=== PATIENT | male | born 2000 | race Caucasian/White ===

== ENCOUNTER 2020-07-18 08:15 | Outpatient (RCR) | payer OTHER, SELFPAY ==
[2020-07-11 12:23] VITALS: BMI 18.6
--- NOTE | 2020-07-11 13:01 | PC.ADMIT ---
Patient is a 19 year old male who started the PHP program today. Patient's father referred patient d/t his increase in depression symptoms with SI, self harming behaviors, struggling with substance use, and anxiety. Patient also struggling with separation from . He is currently living alone. He reports px hx of dx of BPD and Bipolar d/o. Patient stated he is here, to I think reconnect more consistently with a higher level of care in a group setting, I can relate to others, and motivated to curtail suicidal ideation and self harm ideation . Denied current SI. Reports hx of self harming a few years ago where he needed stitches a few times however he does not cut like that anymore, more superficial. Last cut about 2 weeks ago he cut his chest with a razor. Stated, it is roland a mixed bag I use self harming thoughts to self sooth, its weird, I will think a lot about self harm as an option making me feel like I am more in control. So I am trying to get out of the practice . Instead of self harming patient stated he could exercise, listen to music, read. Pt gave verbal permission to email him a copy of his safety plan and will utilize if feeling unsafe. Pt also has the crisis number if needed and is aware he can come to staff if feeling unsafe. Medications reconciled with patient and patient's pharmacy.
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
--- NOTE | 2020-07-19 09:25 | PC.NURSE ---
Pt did not attend community meeting at 9am. TW reached out to patient to check in. Pt answered the phone and presented as if intoxicated. Pt was confusing the day, stating that he had sent TW an email that he was obtaining blood work (that was sent and completed on 07/18/20). Pt struggled to follow the flow of the conversation. TW inquired if pt was using substances at this time, pt denied. Pt was asked again why he missed community meeting and pt responded that this call woke him up and he forgot about program. Pt continued to persent as intoxicated. Pt was told to take the day and to return tomorrow 07/20/20. Pt agreeable. PHP cook supervisor and PHP nurse notified.
--- NOTE | 2020-07-19 11:40 | PC.NURSE ---
Patient did not show up to the program this morning. Katalina spoke to patient earlier this morning and I called him at 11am to f/u. Patient stated that he thinks he is, more on a downswing with my bipolar, hard to get out of bed . Reports that he feels he is slipping with group attendance. He stated his next strategy is to try and focus and share more in group. Stated groups can cause him anxiety. Patient gave an unclear reason why he did not attend the program today. Difficult to follow his train of thought at times. Talked about being late to group because he had lab work to be done. I told him that he completed lab work yesterday. Asked if he was using substances or overusing his prescription medications. Pt denied this. He did state that one of the reasons why he is here is because, I was selling benzos, I was overtaking them . Pt did talk about suffering from severe panic and is afraid to, ask for a bump in dosage of a controlled substance. Asked if he could get a 3 month supply. I let him know that we do not give 3 month supply's of any medications and certainly not controlled substances. Pt then stated that that makes sense. He plans on returning to the program tomorrow. Team is aware.
== END 2020-07-18 23:55 | disposition left against medical advice (07) ==
LOC: HO.PHPA 08:15
PROVIDERS: Visit Provider Psychiatry & Neurology Psychiatry
DX: F31.9 Bipolar disorder, unspecified (principal); F60.3 Borderline personality disorder; Z79.899 Other long term (current) drug therapy
CPT/HCPCS: 90792; 90853

== ENCOUNTER 2020-07-18 08:20 | Outpatient (REF) | payer MEDICAID, SELFPAY ==
[2020-07-18 10:04] LABS: MANUAL DIFF FLAG NO
[2020-07-18 10:22] LABS: Basophils Absolute Auto 0.1 X10*3/uL (0.0-0.2); Eosinophils Absolute Auto 0.1 X10*3/uL (0.0-0.4); Eosinophils Percent Auto 2.3 % (0-4); Hematocrit 43.9 % (42-52); Hemoglobin 14.4 g/dl (14.0-18.0); Imm Gran Abs Auto 0.02 X10*3/uL (0.00-0.03); Imm Gran Pct Auto 0.4 % (0.0-0.4); Lymphocytes Percent Auto 37.8 % (20-40); Mean Corpuscular HGB Conc 32.8 g/dl (31.0-36.0); Mean Corpuscular Hemoglobin 31.4 pg (27.0-33.0); Mean Corpuscular Volume 95.6 fL (80-98); Mean Platelet Volume 9.8 fL (9.4-12.4); Monocytes Absolute Auto 0.4 X10*3/uL (0.1-1.2); Monocytes Percent Auto 6.9 % (2-11); Neutrophils Absolute Auto 2.7 X10*3/uL (2.0-8.3); Neutrophils Percent Auto 51.6 % (45-73); Platelet Count 248 X10*3/uL (160-400); Red Blood Count 4.59 X10*6/uL (4.60-5.80); Red Cell Distribution Width 12.1 % (11.0-16.0); White Blood Count 5.2 X10*3/uL (4.8-10.8)
[2020-07-18 11:11] LABS: HIV AB/AG Nonreactive (Nonreactive); HIV Num 1 0.16 S/CO (0.00-0.99); ~HepC Num1 0.07 S/CO (0.00-0.79); ~Hepatitis C Antibody Nonreactive (Nonreactive)
[2020-07-18 11:13] LABS: Syphilis Screen Nonreactive (Nonreactive)
[2020-07-18 11:14] LABS: Ferritin 106 ng/mL (20-250); Free T4 (Free Thyroxine) 0.79 ng/dL (0.71-1.85); Thyroid Stimulating Hormone 1.45 uIU/mL (0.32-4.0)
[2020-07-18 11:20] LABS: Vitamin B12 491 pg/mL (200-900)
[2020-07-18 11:24] LABS: Alanine Aminotransferase 10 U/L (0-40); Albumin Level 4.3 g/dL (3.5-5.0); Alkaline Phosphatase 63 U/L (39-117); Anion Gap 15 (12-20); Aspartate Amino Transferase 15 U/L (5-37); Blood Urea Nitrogen 17 mg/dL (9-16); Carbon Dioxide 24 mmol/L (22-29); Chloride 106 mmol/L (96-108); Cholesterol 158 mg/dL; Estimated Glomerular Filt Rate > 60; Glucose Random 94 mg/dL (60-115); HDL Cholesterol 57 mg/dL; Iron 81 mcg/dL (45-160); LDL Cholesterol Calculated 85 mg/dl; Percent Iron Saturation 25 % (15-50); Potassium 4.7 mmol/l (3.3-5.1); Sodium 140 mmol/L (135-145); Total Iron Binding Capacity 324 mcg/dL (228-428); Total Protein 6.9 g/dL (6.5-8.0); Triglycerides 81 mg/dL; Unsaturated Iron Binding 243 ug/dL
[2020-07-18 11:38] LABS: Estimated Average Glucose 94 mg/dL; Hemoglobin A1c % 4.9 %
[2020-07-18 11:39] LABS: Bilirubin Total 0.2 mg/dL (0.0-1.0)
[2020-07-18 13:40] LABS: Folate 6.1 ng/mL (> or = 4.0)
== END 2020-07-18 08:21 | disposition home or self-care (01) ==
LOC: HO.LAB 08:20
PROVIDERS: PCP Physician Assistant; Visit Provider Clinical Nurse Specialist Psychiatric/Mental Health, Adult
DX: F31.4 Bipolar disorder, current episode depressed, severe, without psychotic features (principal)
CPT/HCPCS: 36415; 80053; 80061; 82607; 82728; 82746; 83036; 83540; 84439; 84443; 85025; 86780; 86803; 87389

== ENCOUNTER 2020-08-06 20:41 | Emergency (ER) | payer OTHER, MEDICAID, SELFPAY ==
[2020-08-06 21:39] VITALS: BP 115/50; PULSE 86; RESP 18; TEMP 37.1; O2SAT 100; BMI 19.3
--- NOTE | 2020-08-06 21:46 | PC.NURSE ---
[address] aware that patient is in ed waiting room. pt has self inflicted wounds, appears disselved on arrival. pt admits to iv meth, cocaine and ketamine use. pt had abcess on left elbow region due to shooting up cocaine. pt is not in right state of mind and can not in my opinion make medical decisions for himself.
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
--- NOTE | 2020-08-06 22:55 | PC.NURSE ---
PT DENIES S/H IDEATIONS. MD AT BEDSIDE WITH PT AT BEDSIDE. AWAITING FOR FURTHER ORDERS.
--- NOTE | 2020-08-06 23:00 | ED_ITS ---
HPI - Wound/Laceration General Chief Complaint: Wound/Laceration Stated Complaint: HAND LAC Time Seen by Provider: 08/06/20 23:00 Source: patient Mode of arrival: ambulatory History of Present Illness HPI narrative: This is a 19-year-old male who presents with a 2 cm laceration to the left dorsum of the hand that he sustained while trying to play a game a knife and ?missed?. Patient states that he is taking his medications as prescribed as well as additional IV meth, cocaine as well as ketamine usage. He denies any suicidal ideation at this time and denies any depressive thoughts. He states that sometimes he just gets focused on seeing if he can ?handle the pain?. He is here with his father who is waiting for him in the waiting area. Related Data Home Medications Medication Instructions Recorded Confirmed lorazepam 0.5 mg PO DAILY PRN 07/11/20 07/11/20 Previous Rx's Medication Instructions Recorded bupropion HCl [Wellbutrin XL] 300 mg PO QAM #14 tab 07/11/20 lamotrigine [Lamictal] 100 mg PO DAILY #14 tab 07/11/20 lorazepam 0.5 mg PO BID #14 tab 07/11/20 quetiapine [Seroquel] 50 - 100 mg PO DAILY PRN #14 tab 07/11/20 quetiapine [Seroquel] 100 mg PO TID #21 tab 07/11/20 Allergies Allergy/AdvReac Type Severity Reaction Status Date / Time No Known Allergies Allergy Verified 08/06/20 21:38 [No Known Allergies*] Review of Systems Review of Systems: Pertinent positives and negatives as stated in HPI and 10 point review of systems is otherwise negative. REPLACED BY [facility] Past Medical History Source: nursing notes reviewed Medical History Bipolar 1 disorder Borderline personality disorder Cannabis use disorder, moderate, dependence Irritable bowel syndrome Opioid use disorder, moderate, dependence Social History Social History Household Members: None Smoking Status: Former smoker Advance Directives: No Advance Directives Information Provided: Yes Physical Exam Vital Signs: Vital Signs: Last Vital Signs Temp 98.8 F 08/06/20 21:39 Pulse 86 08/06/20 21:39 Resp 18 08/06/20 21:39 BP 115/50 L 08/06/20 21:39 Pulse Ox 100 08/06/20 21:39 Body Mass Index 19.3 VITAL SIGNS: Reviewed. GENERAL: Well developed, well nourished, in no acute distress. OROPHARYNX: no oral lesions noted, posterior pharynx clear NECK: Supple, no adenopathy LUNGS: Normal breath sounds. No adventitious sounds or accessory muscle use. SpO2<> CARDIOVASCULAR: Regular rate and rhythm without noted murmurs, no JVD or lower extremity edema. ABDOMEN: Soft, non-tender, non-distended with bowel sounds. No rigidity. No guarding. No palpable masses or hernias noted MUSCULOSKELETAL: No tenderness, deformities, or effusions noted on gross inspection. EXTREMITIES: No cyanosis, clubbing or edema. SKIN: Inspection of the skin reveals multiple old and new superficial self- inflicted lacerations to entire chest area and bilateral upper extremities, 2 cm laceration to the dorsum of the left hand that is hemostatic and no problems with range of motion. NEUROLOGIC: Alert and oriented x 4. PSYCH: Flat affect, not depressed Course Course Course Narrative: This is a 19-year-old male with history and clinical presentation consistent with accidental laceration to the left dorsum of the hand without tenderness damage. Laceration was repaired without complications and patient was allowed to rest as he had stated he had slept in a couple of days. Patient was discharged home in stable condition after reiterating that he is not having thoughts of killing himself or feeling depressed. Procedures Laceration Laceration 1: Site: hand Side (If applicable): left Size (cm): 2 Description: linear Depth: simple, single layer Local Anesthetic: lidocaine 1% Amount of anesthesia used (mL): 2 Pre-repair: wound explored, irrigated extensively and deep structures intact Skin layer closed with: other (Chromic) Size (cm): 5-0 Number of sutures: 3 Technique: simple, interrupted Discharge Plan Discharge Clinical Impression: Laceration Patient Disposition: Home, Self-Care Instructions: Laceration (ED), Care For Your Absorbable Stitches (ED) Additional Instructions: May cleanse the wounds with soap and water and blot dry. You had 3 stitches that were placed in your left hand today that will gradually absorb and fall out. Please do not hesitate to return to the emergency department should this develop any redness, swelling, or concerning drainage. Prescriptions: No Action lorazepam 0.5 mg Tablet 0.5 mg PO DAILY PRN (Reason: Anxiety) RF: 0 bupropion HCl [Wellbutrin XL] 300 mg tablet extended release 24 hr 300 mg PO QAM Qty: 14 RF: 1 lamotrigine [Lamictal] 100 mg tablet 100 mg PO DAILY Qty: 14 RF: 1 quetiapine [Seroquel] 100 mg Tablet 100 mg PO TID Qty: 21 RF: 4 quetiapine [Seroquel] 100 mg Tablet 50 - 100 mg PO DAILY PRN (Reason: Agitation) Qty: 14 RF: 4 lorazepam 0.5 mg Tablet 0.5 mg PO BID Qty: 14 RF: 4 Referrals: Tammy Cintron PA [Primary Care Provider] - 2 days (Re-evaluation and outpatient follow-up for laceration repaired with absorbable sutures to the left hand.)
[2020-08-06] MEDS: Lidocaine HCl 1 % MPF 5 ML VIAL INFILTRATI (23:18)
--- NOTE | 2020-08-07 00:11 | PC.NURSE ---
PT SLEEPING IN RECLINING CHAIR IN NAD. WOUNDS ON HAND CLEANED UP. PT DENIES ANY PAIN/COMPLAINTS AT THIS TIME. PT DENIES S/H IDEATIONS AND STATES I DO NOT WANT TO HURT MYSELF UPDATED FATHER IN [place]. FATHER STATES I WILL STAY HERE UNTIL PT IS DISCHARGED. WILL CONTINUE TO MONITOR PT.
--- NOTE | 2020-08-07 00:40 | MHC.CARE ---
CARE team attempted to meet with pt at request of the ED physician, however was unable to wake pt up for conversation. Recommendation to wait until pt is less altered by substances and re-assess need for crisis evaluation.
--- NOTE | 2020-08-07 03:23 | PC.NURSE ---
PT AWAITING FOR MD'S EVAL FOR SUTURING HAND UP. PT SLEEPING WAKES TO VERBAL STIMULI, RESPIRATIONSE EASY, N/L. WILL CONTINUE TO MONITOR PT.
--- NOTE | 2020-08-07 04:00 | PC.NURSE ---
PT CHG INTO CRISIS ATTIRE WITH SECURITY PRESENT AT BEDSIDE FOR SAFETY. PT REMAINS ALERT, RESPIRATIONS EASY, N/L. SKIN W/D.
[2020-08-07 07:46] VITALS: BP 110/42; PULSE 67; RESP 14; TEMP 36.9; O2SAT 98
== END 2020-08-07 08:06 | disposition home or self-care (01) ==
PROVIDERS: Emergency Provider Student in an Organized Health Care Education/Training Program; PCP Physician Assistant
DX: S61.412A Laceration without foreign body of left hand, initial encounter (principal); W26.0XXA Contact with knife, initial encounter; Y93.83 Activity, rough housing and horseplay; F11.20 Opioid dependence, uncomplicated; F12.20 Cannabis dependence, uncomplicated; F60.3 Borderline personality disorder; Z91.5 Personal history of self-harm; Y92.019 Unspecified place in single-family (private) house as the place of occurrence of the external cause; Y99.9 Unspecified external cause status; Z79.899 Other long term (current) drug therapy
CPT/HCPCS: 12001; 99284

== ENCOUNTER 2020-10-13 20:30 | Inpatient (IN) | payer OTHER, SELFPAY ==
[2020-10-13 20:37] VITALS: BP 97/47; BP 98/63; PULSE 80; PULSE 96; RESP 18; TEMP 36.5; O2SAT 100; O2SAT 97; BMI 18.3
--- NOTE | 2020-10-13 21:11 | ECG_ITS ---
Test Reason : OVERDOSE Blood Pressure : / mmHG Vent. Rate : 060 BPM Atrial Rate : 060 BPM P-R Int : 174 ms QRS Dur : 102 ms QT Int : 382 ms P-R-T Axes : 048 061 038 degrees QTc Int : 382 ms Sinus rhythm with marked sinus arrhythmia Otherwise normal ECG When compared with ECG of 03-APR-2020 10:56, No significant change was found Referred By: Nereyda Dooley Electronically Signed By:DINA SIEGEL
[2020-10-13] MEDS: Lidocaine HCl 2 % MPF 5 ML VIAL SUBCUT (21:17)
[2020-10-13 21:30] VITALS: BP 105/55; PULSE 64; RESP 18; O2SAT 100
[2020-10-13 21:48] LABS: Amphetamine Screen Urine Not Detected (Not Detect); Barbiturates, Urine Not Detected (Not Detect); Benzodiazepines Screen Urine POSITIVE (Not Detect); Cannabinoid Screen Urine POSITIVE (Not Detect); Cocaine Screen Urine Not Detected (Not Detect); Opiate Screen Urine Not Detected (Not Detect); Phencyclidine Screen Urine Not Detected (Not Detect)
[2020-10-13 22:03] LABS: Basophils Percent Auto 0.8 % (0-2); Eosinophils Absolute Auto 0.1 X10*3/uL (0.0-0.4); Eosinophils Percent Auto 1.2 % (0-4); Hematocrit 35.4 % (42-52); Hemoglobin 11.7 g/dl (14.0-18.0); Imm Gran Abs Auto 0.01 X10*3/uL (0.00-0.03); Imm Gran Pct Auto 0.2 % (0.0-0.4); Lymphocytes Absolute Auto 1.2 X10*3/uL (1.2-4.9); Lymphocytes Percent Auto 23.9 % (20-40); MANUAL DIFF FLAG NO; Mean Corpuscular HGB Conc 33.1 g/dl (31.0-36.0); Mean Corpuscular Hemoglobin 31.8 pg (27.0-33.0); Mean Corpuscular Volume 96.2 fL (80-98); Mean Platelet Volume 9.2 fL (9.4-12.4); Monocytes Absolute Auto 0.4 X10*3/uL (0.1-1.2); Monocytes Percent Auto 7.6 % (2-11); Neutrophils Absolute Auto 3.4 X10*3/uL (2.0-8.3); Neutrophils Percent Auto 66.3 % (45-73); Platelet Count 179 X10*3/uL (160-400); Red Blood Count 3.68 X10*6/uL (4.60-5.80); Red Cell Distribution Width 11.9 % (11.0-16.0); White Blood Count 5.1 X10*3/uL (4.8-10.8)
[2020-10-13 22:07] VITALS: BP 112/61; PULSE 72; RESP 16; O2SAT 98
--- NOTE | 2020-10-13 22:10 | ED.GENADULT ---
HPI - General Adult General Chief complaint: Psychiatric Symptoms Stated complaint: crisis drug use Time Seen by Provider: 10/13/20 20:55 Source: patient and EMS Mode of arrival: EMS Limitations: no limitations History of Present Illness HPI narrative: 19 yo male (uses female pronouns) with past medical history of substance abuse, borderline personality disorder, bipolar disease here with EMS with lacerations to left wrist. Patient tells me that this was the 1st time tonight he was able to see his in visit with his mother. He is very excited about this visit however his mother and father confronted him with his polysubstance use and this made him very upset. He told me he went into the bathroom and used a razor to cut his left wrist. When asked if he was intending to kill himself patient states, I didn't do a good enough job then asks what do you think real suicidal people would say about this. No HI. NO hallucinations. tells me i have a drug problem but I know about that and its not new. Tells me he abuses xanax, uses LSD, ketamine, cocaine, alcohol. Unsure of tetanus status. Multiple lacerations to left wrist on arrival. No other physical complaints. Related Data Home Medications Medication Instructions Recorded Confirmed lorazepam 0.5 mg PO DAILY PRN 07/11/20 07/11/20 Previous Rx's Medication Instructions Recorded bupropion HCl [Wellbutrin XL] 300 mg PO QAM #14 tab 07/11/20 lamotrigine [Lamictal] 100 mg PO DAILY #14 tab 07/11/20 lorazepam 0.5 mg PO BID #14 tab 07/11/20 quetiapine [Seroquel] 50 - 100 mg PO DAILY PRN #14 tab 07/11/20 quetiapine [Seroquel] 100 mg PO TID #21 tab 07/11/20 Allergies Allergy/AdvReac Type Severity Reaction Status Date / Time No Known Allergies Allergy Verified 08/06/20 21:38 [No Known Allergies*] Review of Systems Review of Systems: Yes all other systems are reviewed and are negative Constitutional: Constitutional: Reports no additional constitutional complaints, Denies body ache(s), Denies chills, Denies fever(s), Denies headache(s) and Denies weakness Eyes: Eyes: Reports no additional eye complaints and Denies change in vision ENT: Reports system reviewed and no additional complaints, except as documented, Denies dizziness, Denies headache(s), Denies nasal congestion, Denies nasal discharge and Denies neck pain Cardiovascular: Cardiovascular: Reports no additional cardiovascular complaints, Denies chest pain, Denies leg edema and Denies dyspnea Respiratory: Respiratory: Reports no additional respiratory complaints, Denies cough and Denies dyspnea Gastrointestinal: Gastrointestinal: Reports no additional gastrointestinal complaints, Denies abdominal pain, Denies diarrhea, Denies nausea and Denies vomiting Genitourinary: Genitourinary: Denies urinary incontinence Musculoskeletal: Musculoskeletal: Reports no additional musculoskeletal complaints, Denies back pain, Denies arthralgias, Denies joint swelling, Denies neck pain, Denies numbness and Denies tingling Integumentary/Breasts: Skin/Breast: Reports system reviewed and no additional complaints, except as docu and Denies rash Neurologic: Reports system reviewed and no additional complaints, except as documented, Denies Abnormal speech present, Denies dizziness, Denies headache(s), Denies numbness, Denies tingling and Denies weakness Psychiatric: Comments: +self harm [facility] Past Medical History Attestation statement: The following information was validated with the patient. Source: old records reviewed and nursing notes reviewed Medical History Bipolar 1 disorder Borderline personality disorder Cannabis use disorder, moderate, dependence Irritable bowel syndrome Opioid use disorder, moderate, dependence Social History Social History Household Members: None Alcohol intake: current Smoking Status: Never smoker Use of substances other than those prescribed or required for medical reasons: Yes Advance Directives: No Advance Directives Information Provided: Yes Physical Exam Vital Signs: Vital Signs: Last Vital Signs Temp 97.7 F 10/13/20 20:37 Pulse 72 10/13/20 22:07 Resp 16 10/13/20 22:07 BP 112/61 10/13/20 22:07 Pulse Ox 98 10/13/20 22:07 Body Mass Index 18.3 Const: General: no acute distress Orientation/consciousness: patient oriented x3 Limitations: no limitations HENMT: Head: Yes normal to inspection Ears: hearing grossly normal bilaterally General nose exam: Normal external nose present Face and sinus: Yes normal facial exam Mouth: Normal oral and palatal mucosa present Throat: Yes posterior oropharynx normal Eyes: General: appearance normal, both eyes and all related structures Pupils: Equal, round and reactive pupils present Neck: Neck: Yes normal visual inspection Chest: Chest palpation & inspection: normal inspection of the chest Resp: Effort & Inspection: normal respiratory effort Auscultation: clear to auscultation bilaterally Cardio: Rate: regular rate Rhythm: regular rhythm Peripheral pulses: Peripheral pulses 2+ throughout GI: Inspection: Yes normal to inspection Palpation (GI): Soft to palpation and nontender Auscultation: normal bowel sounds Back/Spine/Pelvis: Thoracic/Lumbar Spine: thoracic and lumbar spine normal to inspection Skin: General skin exam: no rashes or lesions noted Neuro: Other: drowsy, mumbling, rouses to verbal General: patient oriented x3, no focal motor deficits and normal sensation to monofilament Cranial nerves: Yes Equal, round and reactive pupils present Cognition (Neuro): normal cognition Speech: No Abnormal speech present Gait exam (Neuro): Normal gait present Motor exam (neuro): 5/5 motor strength present throughout Extrem: Other: To the left volar wrist there are multiple lacerations noted (one which is more distal and is linear approximately 7cm and one just proximal to this which is approximately 5cm and more superficial). There are 3 superficial lacerations over the dorsal hand as well. General: Yes normal to inspection Course Course Course Narrative: 19 yo male (uses female pronouns) here s/p self harm, verbal altercation with family at home. Multiple lacerations to left wrist one requiring suture placement. Will need labs, EKG, ZAVALA, tetanus updated, care team. 2320-Seen by care team. Plan to keep patient in ED on section 12, re-evaluation in the AM. 0200-Sign out to night team. Patient placed in physician observation at this time pending placement. VS stable. A&Ox4. Procedures Laceration Laceration 1: Site: upper extremity (volar FA) Side (If applicable): left Size (cm): 7 Description: linear Depth: simple, single layer Local Anesthetic: lidocaine 2% Pre-repair: wound explored Skin layer closed with: nylon Size (cm): 5-0 Number of sutures: 6 Technique: simple, interrupted Laceration 2: Site: upper extremity (volar FA) Side (If applicable): left Size (cm): 5 Description: linear Skin layer closed with: other (steri strips ) Laceration 3: Site: hand Side (If applicable): left Size (cm): 2 Description: linear Skin layer closed with: other (steri strips ) Medical Decision Making Medical Records Medical records reviewed: Yes I reviewed the patient's medical records. Lab Data Lab results reviewed: Yes I reviewed the patient's lab results. Result diagrams: 10/13/20 21:58 10/13/20 21:58 Labs: Lab Results 10/13/20 10/13/20 10/13/20 Range/Units 21:22 21:58 21:58 WBC 5.1 (4.8-10.8) X10*3/uL RBC 3.68 L (4.60-5.80) X10*6/uL Hgb 11.7 L (14.0-18.0) g/dl Hct 35.4 L (42-52) % MCV 96.2 (80-98) fL MCH 31.8 (27.0-33.0) pg MCHC 33.1 (31.0-36.0) g/dl RDW 11.9 (11.0-16.0) % Plt Count 179 D (160-400) X10*3/uL MPV 9.2 L (9.4-12.4) fL Immature Gran % (Auto) 0.2 (0.0-0.4) % Neut % (Auto) 66.3 (45-73) % Lymph % (Auto) 23.9 (20-40) % [place] % (Auto) 7.6 (2-11) % Eos % (Auto) 1.2 (0-4) % Baso % (Auto) 0.8 (0-2) % Lymph # (Auto) 1.2 (1.2-4.9) X10*3/uL [place] # (Auto) 0.4 (0.1-1.2) X10*3/uL Eos # (Auto) 0.1 (0.0-0.4) X10*3/uL Baso # (Auto) 0.0 (0.0-0.2) X10*3/uL Abs Immat Gran (auto) 0.01 (0.00-0.03) X10*3/uL Absolute Neuts (auto) 3.4 (2.0-8.3) X10*3/uL Absolute Nucleated RBC 0.000 (0.0-0.012) X10*3/uL Nucleated RBC % (auto) 0.0 (0.0-0.2) /100WBC Sodium 140 (135-145) mmol/L Potassium 4.1 (3.3-5.1) mmol/L Chloride 105 (96-108) mmol/L Carbon Dioxide 27 (22-29) mmol/L Anion Gap 12 (12-20) BUN 7 L D (9-16) mg/dL Creatinine 0.98 (0.5-1.4) mg/dL Estim Creat Clear Calc 97.4 Estimated GFR > 60 Random Glucose 83 (60-115) mg/dL Calcium 8.6 (8.4-10.2) mg/dL Total Bilirubin 0.5 (0.0-1.0) mg/dL Direct Bilirubin 0.3 (0.0-0.5) mg/dL AST 66 H (5-37) U/L ALT 32 (0-40) U/L Alkaline Phosphatase 67 (39-117) U/L Total Protein 6.3 L (6.5-8.0) g/dL Albumin 4.0 (3.5-5.0) g/dL Salicylates < 5.0 L (15-30) mg/dL Urine Opiates Screen Not Detected (Not Detect) Acetaminophen < 1 (<30) mcg/mL Ur Barbiturates Screen Not Detected (Not Detect) Ur Phencyclidine Scrn Not Detected (Not Detect) Ur Amphetamines Screen Not Detected (Not Detect) U Benzodiazepines Scrn POSITIVE H (Not Detect) Urine Cocaine Screen Not Detected (Not Detect) U Marijuana (THC) Screen POSITIVE H (Not Detect) Ethyl Alcohol mg/dL COVID-19 (SE[facility]) (Negative) COVID-19 Clin Com 10/13/20 10/13/20 Range/Units 21:58 22:07 WBC (4.8-10.8) X10*3/uL RBC (4.60-5.80) X10*6/uL Hgb (14.0-18.0) g/dl Hct (42-52) % MCV (80-98) fL MCH (27.0-33.0) pg MCHC (31.0-36.0) g/dl RDW (11.0-16.0) % Plt Count (160-400) X10*3/uL MPV (9.4-12.4) fL Immature Gran % (Auto) (0.0-0.4) % Neut % (Auto) (45-73) % Lymph % (Auto) (20-40) % [place] % (Auto) (2-11) % Eos % (Auto) (0-4) % Baso % (Auto) (0-2) % Lymph # (Auto) (1.2-4.9) X10*3/uL [place] # (Auto) (0.1-1.2) X10*3/uL Eos # (Auto) (0.0-0.4) X10*3/uL Baso # (Auto) (0.0-0.2) X10*3/uL Abs Immat Gran (auto) (0.00-0.03) X10*3/uL Absolute Neuts (auto) (2.0-8.3) X10*3/uL Absolute Nucleated RBC (0.0-0.012) X10*3/uL Nucleated RBC % (auto) (0.0-0.2) /100WBC Sodium (135-145) mmol/L Potassium (3.3-5.1) mmol/L Chloride (96-108) mmol/L Carbon Dioxide (22-29) mmol/L Anion Gap (12-20) BUN (9-16) mg/dL Creatinine (0.5-1.4) mg/dL Estim Creat Clear Calc Estimated GFR Random Glucose (60-115) mg/dL Calcium (8.4-10.2) mg/dL Total Bilirubin (0.0-1.0) mg/dL Direct Bilirubin (0.0-0.5) mg/dL AST (5-37) U/L ALT (0-40) U/L Alkaline Phosphatase (39-117) U/L Total Protein (6.5-8.0) g/dL Albumin (3.5-5.0) g/dL Salicylates (15-30) mg/dL Urine Opiates Screen (Not Detect) Acetaminophen (<30) mcg/mL Ur Barbiturates Screen (Not Detect) Ur Phencyclidine Scrn (Not Detect) Ur Amphetamines Screen (Not Detect) U Benzodiazepines Scrn (Not Detect) Urine Cocaine Screen (Not Detect) U Marijuana (THC) Screen (Not Detect) Ethyl Alcohol < 10 mg/dL COVID-19 ([facility]) Negative (Negative) COVID-19 Clin Com See Note ECG Data Attestation: I personally reviewed and interpreted this ECG as follows: Interpretation: SR with sinus arrythmia, normal pr, normal qrs, normal qt Discharge Plan Discharge Clinical Impression: Bipolar 1 disorder, Lacerations of multiple sites of left arm Instructions: Laceration (ED), Bipolar Disorder (ED) Additional Instructions: Sutures out in 7-10 days Prescriptions: No Action lorazepam 0.5 mg Tablet 0.5 mg PO DAILY PRN (Reason: Anxiety) RF: 0 bupropion HCl [Wellbutrin XL] 300 mg tablet extended release 24 hr 300 mg PO QAM Qty: 14 RF: 1 lamotrigine [Lamictal] 100 mg tablet 100 mg PO DAILY Qty: 14 RF: 1 quetiapine [Seroquel] 100 mg Tablet 100 mg PO TID Qty: 21 RF: 4 quetiapine [Seroquel] 100 mg Tablet 50 - 100 mg PO DAILY PRN (Reason: Agitation) Qty: 14 RF: 4 lorazepam 0.5 mg Tablet 0.5 mg PO BID Qty: 14 RF: 4
[2020-10-13 22:29] LABS: Ethanol < 10 mg/dL
[2020-10-13 22:32] LABS: Chloride 105 mmol/L (96-108)
[2020-10-13 22:39] LABS: COVID-19 Test Negative (Negative); IDNOW Serial# 9DD0AD1C
[2020-10-13 22:39] LABS: Alanine Aminotransferase 32 U/L (0-40); Alkaline Phosphatase 67 U/L (39-117); Aspartate Amino Transferase 66 U/L (5-37); Bilirubin Direct 0.3 mg/dL (0.0-0.5); Bilirubin Total 0.5 mg/dL (0.0-1.0); Blood Urea Nitrogen 7 mg/dL (9-16); Calcium 8.6 mg/dL (8.4-10.2); Carbon Dioxide 27 mmol/L (22-29); Creatinine Clr Calc Pharmacy 97.4; Estimated Glomerular Filt Rate > 60; Glucose Random 83 mg/dL (60-115); Salicylate < 5.0 mg/dL (15-30); Total Protein 6.3 g/dL (6.5-8.0)
[2020-10-13 22:49] LABS: Potassium 4.1 mmol/L (3.3-5.1)
[2020-10-13 22:58] LABS: Anion Gap 12 (12-20); Sodium 140 mmol/L (135-145)
[2020-10-13 23:05] LABS: Acetaminophen LAB < 1 mcg/mL (<30)
[2020-10-14] MEDS: diphenhydrAMINE HCL 25 MG TABLET PO (01:36)
--- NOTE | 2020-10-14 01:52 | MHC.CARE ---
Late entry: Pt evaluated by CARE team with disposition for inpt psych. Pt has been placed on a Sect 12a to be held for further assessment and evaluation pending facility admission.
--- NOTE | 2020-10-14 02:01 | PC.NURSE ---
pt seen on the camera of himself punching his chest/abd area, this action caused his left arm lac to bleed thur his dressing. Security called and present, dressing changed, sutures intact, steri strips not intact and replaced, pt eligio well. Pt started to cry he is asking for his necklace that he says he kisses and holds when he is upset. Pt instructed all of his belongings are locked and secured and will be given back to him on discharge. necklace was not given to the pt. pt is a 1:1 sitter. pt is redirectable at this time and is following commands.
[2020-10-14] MEDS: LORazepam 1 MG TABLET PO (02:26)
--- NOTE | 2020-10-14 02:30 | PC.NURSE ---
pt was medicated with bendryl at 0136 and has not been effective for the pt. pt feeling manic phase coming on, constant talking, laying on the floor, hitting self, walking around his room looking into the tv and around the tv box mounted on the wall. pt requesting medications to help him calm his thoughts down of wanting to cause harm to the objects in his room (chair, table, wall) pt wants to punch things at this time. pt medicated with ativan po and pt was thankful.
--- NOTE | 2020-10-14 04:08 | PC.NURSE ---
pt is sleeping, pt stated he was off his meds lack of sleep and the ativan worked well. pt alseep with no s/s of resp distress.
--- NOTE | 2020-10-14 07:08 | PC.NURSE ---
Report received. PT currently sleeping, respirations even and unlabored, in no apparent distress. Pt is inpatient bedsearch.
[2020-10-14 09:19] VITALS: RESP 18
--- NOTE | 2020-10-14 10:53 | PC.NURSE ---
[facility] contacted, medications verified. [facility] the [facility] on 10/11, per the patient, she has been taking lamictal daily. Provider notified.
[2020-10-14] MEDS: QUEtiapine Fumarate 100 MG TABLET 150 MG PO ×2 (11:35→20:31)
[2020-10-14] MEDS: buPROPion HCl XL 300 MG TAB.ER.24H PO (11:35)
[2020-10-14] MEDS: buPROPion HCl XL 150 MG TAB.ER.24H PO (11:35)
[2020-10-14] MEDS: LORazepam 0.5 MG TABLET 1 MG PO ×2 (11:36→20:29)
[2020-10-14 16:02] LABS: COVID-19 Test Negative (Negative); IDNOW Serial# 9DD0AD1C
--- NOTE | 2020-10-14 16:05 | PC.NURSE ---
Addendum entered by Lori Steele 10/14/20 16:16: [facility] and [facility] contacted - medical records currently unavailable due to Thursday hours. Provider notified. Original Note: Medications discussed with Dr. Gaviria, pt to be given lamictal 50mg BID and lower welburtin to 150mg daily due to reported seizure activity. Pt states that she had two seizures in early September 1 day apart from each other. Pt reports that he went to [facility] for the first seizure and [facility] for the second. PCP will be contacted for more information, hospitals will also be contacted for more information.
[2020-10-14 18:35] VITALS: BP 124/64; PULSE 88; RESP 18; TEMP 36.7; O2SAT 100
[2020-10-14] MEDS: lamoTRIgine 100 MG TABLET 50 MG PO (20:30)
[2020-10-14] MEDS: QUEtiapine Fumarate 100 MG TABLET 200 MG PO (20:33)
--- NOTE | 2020-10-14 21:38 | PC.NURSE ---
Contact made to [facility], spoke to Dr. Medina- pt was seen at facility on sep 27 for witnessed seizure. pt was discharged with no follow up. recommened dosage of welbutrin be decreased due to the medication lowering threshold for seizures. pt was not admitted to floor and was released the same day. phone number .
--- NOTE | 2020-10-14 22:12 | MHC.CARE ---
MSU completed. Pt's mental status and presentation has improved, though continues to meet medical necessity for a voluntary IPLOC. Pt reported feeling better since she has been receiving her medications as directed and being in a safe, contained environment. Given the reduction in acuity of pt's presentation, this development writer discussed possibility of a referral for PHP if pt continues to improve, which pt is agreeable to at this time. If pt is not acceptance for admission to an inpt psych facility tomorrow, CARE team will assess the possibilty of next day/same day starts for PHP and will discuss the options with pt prior to making a decision with regards to disposition and plan of care. ED provider updated and is in agreement with plan at this time.
[2020-10-15] VITALS (9 sets, daily range): BP systolic 110–126; BP diastolic 55–70; PULSE 76–97; RESP 15–20; TEMP 36.7–37.6; O2SAT 99
[2020-10-15] MEDS: HaloperidoL 5 MG TABLET PO (02:09)
[2020-10-15] MEDS: LORazepam 1 MG TABLET PO (02:10)
--- NOTE | 2020-10-15 02:12 | PC.NURSE ---
pt reporting increasing anxiety, loose train of thoughts. pt reports visual hallucinations. pt reports seeing wavy lines and then it turning into a bug. pt reported feeling unsafe and concerned about mantaining contract of safety. md aware: medicated with 5mg haldol, 1mg ativan po. medicated without difficulty. monitoring for effect. care team updated on hallucinations and change in thought pattern.
--- NOTE | 2020-10-15 02:46 | PC.NURSE ---
pt continues to have hallucinations of large bugs. patient given warm blankets and remotes. pt reports being able to contract for safety.
--- NOTE | 2020-10-15 06:44 | PC.NURSE ---
haldol and ativan had good effect. no further incidents of hallucinations.
--- NOTE | 2020-10-15 07:47 | PC.NURSE ---
Report received from RONALD Loving. Pt resting in room, awake. Denies any thoughts to harm himself at the moment, denies AH at this time, reports he has AH only when it is dark.
[2020-10-15] MEDS: buPROPion HCl XL 150 MG TAB.ER.24H PO (09:19)
[2020-10-15] MEDS: lamoTRIgine 100 MG TABLET 50 MG PO ×2 (09:19→20:20)
[2020-10-15] MEDS: LORazepam 0.5 MG TABLET 1 MG PO ×2 (09:20→20:20)
[2020-10-15] MEDS: QUEtiapine Fumarate 100 MG TABLET 150 MG PO ×2 (09:21→20:22)
--- NOTE | 2020-10-15 11:19 | PC.NURSE ---
Pt resting in nando, denies any concerns at this time.
--- NOTE | 2020-10-15 13:30 | MHC.CARE ---
This telegraphic typewriter operator met with pt who denied current SI but reports that I have thoughts often but don't always want to act on them. Denied plan,intent, means. Pt reported self harm thoughts and reported that she wanted to cut but reports that she was not going to act on these urges. Pt reported that she is interested in gaining further skills to work through her depression and is also interested in finding a therapist that she can work with on a methods time analyst basis. Pt felt that she did not need IPLOC at this time but reported if she went home she would continue to use substances and reported that she did not want to keep using. Pt and this telegraphic typewriter operator discussed respite. This telegraphic typewriter operator discussed with Val Wheeler( sourcing assistant crisis and respite services)this case and faxed over medical records. Val reported that she could save a bed and could have pt come to respite on 10/17/19.
--- NOTE | 2020-10-15 16:04 | PC.NURSE ---
Pt awake, on telephone, affect even.
--- NOTE | 2020-10-15 17:51 | PC.NURSE ---
Lacerations left arm cleansed- dressing changed. Area clean, no erythema, no drainage, no bleeding.
[2020-10-15] MEDS: QUEtiapine Fumarate 100 MG TABLET 200 MG PO (20:19)
--- NOTE | 2020-10-15 21:00 | PC.NURSE ---
Patient lying bed quietly, compliant with his medication, no distress observed/reported, will continue to monitor
[2020-10-16] VITALS (8 sets, daily range): BP systolic 116; BP diastolic 58–78; PULSE 58–100; RESP 16–20; TEMP 36.7–37.2; O2SAT 99
--- NOTE | 2020-10-16 07:14 | PC.NURSE ---
Report rceived from RONALD Kraft. Pt awake, affect even, denies any concerns, reports he slept last night.
[2020-10-16] MEDS: LORazepam 0.5 MG TABLET 1 MG PO ×2 (08:15→21:45)
[2020-10-16] MEDS: buPROPion HCl XL 150 MG TAB.ER.24H PO (08:15)
[2020-10-16] MEDS: lamoTRIgine 100 MG TABLET 50 MG PO ×2 (08:16→21:46)
[2020-10-16] MEDS: QUEtiapine Fumarate 100 MG TABLET 150 MG PO ×2 (08:17→21:47)
--- NOTE | 2020-10-16 11:24 | PC.NURSE ---
Pt awake, alert- affect even. Lacerations left arm clean, dry. Pt prefers to leave uncovered.
--- NOTE | 2020-10-16 18:19 | PC.NURSE ---
Pt ate dinner, affect even, no concerns reported, pleasant.
--- NOTE | 2020-10-16 19:06 | PC.NURSE ---
report given to RONALD Sims m5
--- NOTE | 2020-10-16 19:17 | PC.NURSE ---
Patient calm and quiet in her room, per report from Carolin patient is pending admission to and RN to RN completed, no distress reported, will continue to monitor.
[2020-10-16] MEDS: QUEtiapine Fumarate 100 MG TABLET 200 MG PO (21:45)
[2020-10-16] MEDS: Flu Vacc QS2020-21(6mos up)/PF 0.5 ML SYRINGE IM (21:50)
--- NOTE | 2020-10-16 21:56 | PC.ADMIT ---
Pt is a 19 year old transgender male to female with her and she pronouns. Pt arrived on unit at 1999. Pt arrived to [facility] by ambulance secondary to inflicting lacerations to her lt wrist, on of which required 6 sutures and the other several cuts were superficial but stacked over on another. Prior toarrival, pt had been approached by familywho expressed their concerns about the pts substance use. Pt stated I felt like they were telling me to kill myself, so that s what happedned. Pt s father reported that pt has been not sleeping for the past few days, increasingly disoriented and forgetful, and has notabley impaired short term memory. Pt recently experienced 2 grand mal seizures, which pt's PCP suspects may be due to her substance use and being prescrived a high dose of wellbutrin. Pt is in the process of being referred to a neurologist. Pt has not been sleeping for the past 3-4 days, reported that she has bipolar and is going into a meera , reported experiencing auditory hallucinations of voices asking for advice and stuff for the past couple weeks, and is in the midst of a benzo-andrews which is likely also contributing to pt's present mental status. Pt has been in the porcess of trying to revisit her relationship with her , however the situation continues to be reported as emotionally tumultuous. Prior to arrival to the ED, pt made a seemingly impulsive suicidal gesture in response to being confronted about her substance use and mental health. Pt signed a CV and also signed a 3-day notice. Pt denies SI/HI. Pt states that she is having AH/VH. Pt has 6 sutures dry and intact without signs, symptoms of infection to lt forarm. Pt also has scabbed areas where he punched a wall over rt knuckles.
[2020-10-17 06:00] VITALS: BP 108/60; PULSE 67; TEMP 36.6
[2020-10-17] MEDS: lamoTRIgine 100 MG TABLET 50 MG PO (08:42)
[2020-10-17] MEDS: buPROPion HCl XL 150 MG TAB.ER.24H PO (08:42)
[2020-10-17] MEDS: Nicotine 21 MG PATCH.TD24 TRANSDERMA (08:42)
[2020-10-17] MEDS: LORazepam 0.5 MG TABLET 1 MG PO ×2 (08:42→20:10)
[2020-10-17] MEDS: QUEtiapine Fumarate 100 MG TABLET 150 MG PO (08:43)
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
[2020-10-17 20:00] VITALS: BP 130/84; PULSE 94; TEMP 36.1
[2020-10-17] MEDS: QUEtiapine Fumarate 100 MG TABLET 200 MG PO (21:42)
[2020-10-17] MEDS: Divalproex Sodium 500 MG TABLET.DR PO (21:43)
[2020-10-17] MEDS: Mirtazapine 7.5 MG TABLET PO (21:44)
[2020-10-18 06:20] VITALS: BP 103/50; PULSE 54; RESP 14; TEMP 36.8; O2SAT 97
[2020-10-18] MEDS: Divalproex Sodium 500 MG TABLET.DR PO ×2 (09:08→21:59)
[2020-10-18] MEDS: Nicotine 21 MG PATCH.TD24 TRANSDERMA (09:08)
[2020-10-18] MEDS: LORazepam 0.5 MG TABLET 1 MG PO ×2 (09:08→21:59)
[2020-10-18 10:41] VITALS: BMI 18.6
[2020-10-18] MEDS: hydrOXYzine HCL 50 MG TABLET PO ×2 (15:10→21:59)
[2020-10-18 18:00] VITALS: BP 114/59; PULSE 91; TEMP 36.9
--- NOTE | 2020-10-18 18:03 | P.PNPSI_ITS ---
Subjective Subjective Date of Service: 10/18/20 Reason For Visit: Drug use Subjective Notes: 3 Day Interim History: Pt reports sleeping better. He reports feeling less anxious and agitated. He also reports feeling less confused. He denies VH/AH. He has been more visible in the unit, attends some groups. We discussed doing depakote levels, adjusting dose. Medication Compliance: Yes Side effects from medications: No Review of Systems Review of Systems Yes all other systems are reviewed and are negative Constitutional: Reports no additional constitutional complaints, Denies body ache(s), Denies chills, Denies fever(s), Denies headache(s) and Denies weakness Eyes: Reports no additional eye complaints and Denies change in vision Reports system reviewed and no additional complaints, except as documented, Denies dizziness, Denies headache(s), Denies nasal congestion, Denies nasal discharge and Denies neck pain Cardiovascular: Reports no additional cardiovascular complaints, Denies chest pain, Denies leg edema and Denies dyspnea Respiratory: Reports no additional respiratory complaints, Denies cough and Denies dyspnea Gastrointestinal: Reports no additional gastrointestinal complaints, Denies abdominal pain, Denies diarrhea, Denies nausea and Denies vomiting Genitourinary: Denies urinary incontinence Musculoskeletal: Reports no additional musculoskeletal complaints, Denies back pain, Denies arthralgias, Denies joint swelling, Denies neck pain, Denies num bness and Denies tingling Skin/Breast: Reports system reviewed and no additional complaints, except as docu and Denies rash Reports system reviewed and no additional complaints, except as documented, Denies Abnormal speech present, Denies dizziness, Denies headache(s), Denies numbness, Denies tingling and Denies weakness Mental Status Exam Mental Status Exam Narrative: Appearance: casually groomed, fair hygiene, long hair, in NAD Behavior: calm, cooperative Psychomotor: no agitation or retardation noted Speech: clear, normal rate/rhythm/volume, spontaneous TP: linear TC: no signs of psychosis, insisting on stimulants for adhd Mood: depressed Affect:brighter, non labile AH/VH:+AH Delusions:none Insight/judgment:poor x 2. Memory/cog:alert, oriented x 3. grossly intact to conversational testing. Diagnostics Vital Signs (24Hr): Vital Signs - 24 hr 10/17/20 20:00 10/18/20 06:20 Temperature 96.9 F 98.2 F Pulse Rate 94 54 Respiratory Rate 14 Blood Pressure 130/84 103/50 L Pulse Oximetry 97 Body Mass Index 18.6 Labs Results: 10/13/20 21:58 10/13/20 21:58 Medications Medications Current Medications Generic Name Dose Route Start Last Admin Trade Name Freq PRN Reason Stop Dose Admin Acetaminophen 650 mg 10/16/20 19:20 Acetaminophen 325 Mg Tablet PO Q6H PRN Headache/Pain Mild Scale (1-3) Al Hydroxide/Mg Hydroxide 30 ml 10/16/20 19:20 Magnesium Hydrox/Alum Hydrox 30 Ml Oral.Susp PO Q6H PRN Heartburn/Nausea Divalproex Sodium 500 mg 10/17/20 21:00 10/18/20 09:08 Divalproex Sodium 500 Mg Tablet.Dr PO 500 mg BID [facility] Administration Hydroxyzine HCl 50 mg 10/18/20 14:59 10/18/20 15:10 Hydroxyzine Hcl 50 Mg Tablet PO 50 mg Q6H PRN Administration moderate anxiety Lorazepam 1 mg 10/14/20 21:00 10/18/20 09:08 Lorazepam 0.5 Mg Tablet PO 1 mg BID [facility] Administration Magnesium Hydroxide 30 ml 10/16/20 19:20 Milk Of Magnesia 30 Ml Oral.Susp PO DAILY PRN Constipation Mirtazapine 7.5 mg 10/17/20 21:00 10/17/20 21:44 Mirtazapine 7.5 Mg Tablet PO 7.5 mg BEDTIME [facility] Administration Nicotine 21 mg 10/17/20 09:00 10/18/20 09:08 Nicotine 21 Mg Patch.Td24 TRANSDERMA 21 mg DAILY [facility] Administration Nicotine Polacrilex 2 mg 10/16/20 19:20 Nicotine Polacrilex 2 Mg Gum BUCCAL Q2H PRN Nicotine Cravings Quetiapine Fumarate 200 mg 10/14/20 21:00 10/17/20 21:42 Quetiapine Fumarate 100 Mg Tablet PO 200 mg BEDTIME [facility] Administration Quetiapine Fumarate 50 mg 10/18/20 14:58 Quetiapine Fumarate 50 Mg Tablet PO Q5H PRN anxiety/agitation Allergies Allergies Allergy/AdvReac Type Severity Reaction Status Date / Time No Known Allergies Allergy Verified 08/06/20 21:38 [No Known Allergies*] Assessment & Plan Assessment & Plan (1) Borderline personality disorder: Status: Acute Code(s): F60.3 - Borderline personality disorder (2) Cannabis use disorder, moderate, dependence: Status: Acute Code(s): F12.20 - Cannabis dependence, uncomplicated Assessment and Plan: 1. cross taper lamictal to depakote 2. d/c wellbutrin 3. contiune seroquel 4. Aftercare planning 5. Obtain collateral information (3) Lacerations of multiple sites of left arm: Qualifiers: Encounter type: initial encounter Qualified Code(s): S41.112A - Laceration without foreign body of left upper arm, initial encounter Status: Acute Code(s): S41.112A - Laceration without foreign body of left upper arm, initial encounter (4) Bipolar 1 disorder, mixed, moderate: Status: Acute Code(s): F31.62 - Bipolar disorder, current episode mixed, moderate Greater than 50% of the session was spent on counseling and/or coordination of care Reason for contiued inpatient stay Substantial Risk for: harm to self and inability to function
[2020-10-18] MEDS: Mirtazapine 7.5 MG TABLET PO (21:59)
[2020-10-18] MEDS: QUEtiapine Fumarate 100 MG TABLET 200 MG PO (21:59)
[2020-10-19] MEDS: QUEtiapine Fumarate 50 MG TABLET PO ×2 (00:18→09:15)
[2020-10-19 06:00] VITALS: BP 104/51; PULSE 67; RESP 16; TEMP 36; O2SAT 98
[2020-10-19] MEDS: Divalproex Sodium 500 MG TABLET.DR PO ×2 (09:03→21:55)
[2020-10-19] MEDS: LORazepam 0.5 MG TABLET 1 MG PO (09:03)
[2020-10-19] MEDS: Nicotine 21 MG PATCH.TD24 TRANSDERMA (09:04)
[2020-10-19] MEDS: QUEtiapine Fumarate 50 MG TABLET 150 MG PO (13:26)
--- NOTE | 2020-10-19 17:53 | HO.PSYCHPN ---
Subjective Subjective Date of Service: 10/19/20 Reason For Visit: Drug use Interim History: Pt thought process is linear and coherent. He denies SI/HI. He denies VH/AH. He reports seroquel has been helpful for him in the past and would like to continue this medications. Iniitally we had talked about switching to risperidone if he continues to experience AH. He reports sleep is fair, waking up frequently. He has been visible in the unit, attends groups. Review of Systems Review of Systems Yes all other systems are reviewed and are negative Constitutional: Reports no additional constitutional complaints, Denies body ache(s), Denies chills, Denies fever(s), Denies headache(s) and Denies weakness Eyes: Reports no additional eye complaints and Denies change in vision Reports system reviewed and no additional complaints, except as documented, Denies dizziness, Denies headache(s), Denies nasal congestion, Denies nasal discharge and Denies neck pain Cardiovascular: Reports no additional cardiovascular complaints, Denies chest pain, Denies leg edema and Denies dyspnea Respiratory: Reports no additional respiratory complaints, Denies cough and Denies dyspnea Gastrointestinal: Reports no additional gastrointestinal complaints, Denies abdominal pain, Denies diarrhea, Denies nausea and Denies vomiting Genitourinary: Denies urinary incontinence Musculoskeletal: Reports no additional musculoskeletal complaints, Denies back pain, Denies arthralgias, Denies joint swelling, Denies neck pain, Denies numbness and Denies tingling Skin/Breast: Reports system reviewed and no additional complaints, except as docu and Denies rash Reports system reviewed and no additional complaints, except as documented, Denies Abnormal speech present, Denies dizziness, Denies headache(s), Denies numbness, Denies tingling and Denies weakness Mental Status Exam Mental Status Exam Narrative: Appearance: casually groomed, fair hygiene, long hair, in NAD Behavior: calm, cooperative Psychomotor: no agitation or retardation noted Speech: clear, normal rate/rhythm/volume, spontaneous TP: linear TC: no signs of psychosis, insisting on stimulants for adhd Mood: depressed Affect:brighter, non labile AH/VH:+AH Delusions:none Insight/judgment:poor x 2. Memory/cog:alert, oriented x 3. grossly intact to conversational testing. Diagnostics Vital Signs (24Hr): Vital Signs - 24 hr 10/18/20 18:00 10/19/20 06:00 Temperature 98.5 F 96.8 F Pulse Rate 91 67 Respiratory Rate 16 Blood Pressure 114/59 L 104/51 L Pulse Oximetry 98 Body Mass Index 18.6 Labs Results: 10/13/20 21:58 10/13/20 21:58 Medications Medications Current Medications Generic Name Dose Route Start Last Admin Trade Name Freq PRN Reason Stop Dose Admin Acetaminophen 650 mg 10/16/20 19:20 Acetaminophen 325 Mg Tablet PO Q6H PRN Headache/Pain Mild Scale (1-3) Al Hydroxide/Mg Hydroxide 30 ml 10/16/20 19:20 Magnesium Hydrox/Alum Hydrox 30 Ml Oral.Susp PO Q6H PRN Heartburn/Nausea Divalproex Sodium 500 mg 10/17/20 21:00 10/19/20 09:03 Divalproex Sodium 500 Mg Tablet.Dr PO 500 mg BID [facility] Administration Hydroxyzine HCl 50 mg 10/18/20 14:59 10/18/20 21:59 Hydroxyzine Hcl 50 Mg Tablet PO 50 mg Q6H PRN Administration moderate anxiety Lorazepam 1 mg 10/14/20 21:00 10/19/20 09:03 Lorazepam 0.5 Mg Tablet PO 1 mg BID [facility] Administration Magnesium Hydroxide 30 ml 10/16/20 19:20 Milk Of Magnesia 30 Ml Oral.Susp PO DAILY PRN Constipation Mirtazapine 7.5 mg 10/17/20 21:00 10/18/20 21:59 Mirtazapine 7.5 Mg Tablet PO 7.5 mg BEDTIME [facility] Administration Nicotine 21 mg 10/17/20 09:00 10/19/20 09:04 Nicotine 21 Mg Patch.Td24 TRANSDERMA 21 mg DAILY [facility] Administration Nicotine Polacrilex 2 mg 10/16/20 19:20 Nicotine Polacrilex 2 Mg Gum BUCCAL Q2H PRN Nicotine Cravings Quetiapine Fumarate 200 mg 10/14/20 21:00 10/18/20 21:59 Quetiapine Fumarate 100 Mg Tablet PO 200 mg BEDTIME [facility] Administration Quetiapine Fumarate 50 mg 10/18/20 14:58 10/19/20 09:15 Quetiapine Fumarate 50 Mg Tablet PO 50 mg Q5H PRN Administration anxiety/agitation Quetiapine Fumarate 150 mg 10/19/20 14:00 10/19/20 13:26 Quetiapine Fumarate 50 Mg Tablet PO 150 mg BID@0900,1400 [facility] Administration Allergies Allergies Allergy/AdvReac Type Severity Reaction Status Date / Time No Known Allergies Allergy Verified 08/06/20 21:38 [No Known Allergies*] Assessment & Plan Assessment & Plan (1) Borderline personality disorder: Status: Acute Code(s): F60.3 - Borderline personality disorder (2) Cannabis use disorder, moderate, dependence: Status: Acute Code(s): F12.20 - Cannabis dependence, uncomplicated Assessment and Plan: 1. cross taper lamictal to depakote 2. d/c wellbutrin 3. contiune seroquel 4. Aftercare planning 5. Obtain collateral information (3) Lacerations of multiple sites of left arm: Qualifiers: Encounter type: initial encounter Qualified Code(s): S41.112A - Laceration without foreign body of left upper arm, initial encounter Status: Acute Code(s): S41.112A - Laceration without foreign body of left upper arm, initial encounter (4) Bipolar 1 disorder, mixed, moderate: Status: Acute Code(s): F31.62 - Bipolar disorder, current episode mixed, moderate Greater than 50% of the session was spent on counseling and/or coordination of care Reason for contiued inpatient stay Substantial Risk for: harm to self
[2020-10-19 18:00] VITALS: BP 110/56; PULSE 99; TEMP 37.1
[2020-10-19] MEDS: Mirtazapine 7.5 MG TABLET PO (21:55)
[2020-10-19] MEDS: QUEtiapine Fumarate 100 MG TABLET 200 MG PO (21:55)
[2020-10-20 06:25] VITALS: BP 113/62; PULSE 58; RESP 14; TEMP 36.8; O2SAT 96
[2020-10-20] MEDS: Divalproex Sodium 500 MG TABLET.DR PO ×2 (08:43→21:50)
[2020-10-20] MEDS: Nicotine 21 MG PATCH.TD24 TRANSDERMA (08:44)
[2020-10-20] MEDS: QUEtiapine Fumarate 50 MG TABLET 150 MG PO ×2 (08:44→14:02)
[2020-10-20] MEDS: LORazepam 0.5 MG TABLET 1 MG PO ×2 (10:41→21:49)
[2020-10-20] MEDS: LORazepam 1 MG TABLET PO (10:49)
--- NOTE | 2020-10-20 12:15 | HO.PSYCHPN ---
Subjective Subjective Date of Service: 10/21/20 Reason For Visit: Drug use Interim History: 10/20/2020: Patient reports anxiety. Much concern about lorazepam we discussed continued lorazepam in the context of substance use. We will reinstate lorazepam as it had dropped off. Patient motivated to go to long-term rehab program. 10/19/2020: Pt thought process is linear and coherent. He denies SI/HI. He denies VH/AH. He reports seroquel has been helpful for him in the past and would like to continue this medications. Iniitally we had talked about switching to risperidone if he continues to experience AH. He reports sleep is fair, waking up frequently. He has been visible in the unit, attends groups. Review of Systems Review of Systems Yes all other systems are reviewed and are negative Constitutional: Reports no additional constitutional complaints, Denies body ache(s), Denies chills, Denies fever(s), Denies headache(s) and Denies weakness Eyes: Reports no additional eye complaints and Denies change in vision Reports system reviewed and no additional complaints, except as documented, Denies dizziness, Denies headache(s), Denies nasal congestion, Denies nasal discharge and Denies neck pain Cardiovascular: Reports no additional cardiovascular complaints, Denies chest pain, Denies leg edema and Denies dyspnea Respiratory: Reports no additional respiratory complaints, Denies cough and Denies dyspnea Gastrointestinal: Reports no additional gastrointestinal complaints, Denies abdominal pain, Denies diarrhea, Denies nausea and Denies vomiting Genitourinary: Denies urinary incontinence Musculoskeletal: Reports no additional musculoskeletal complaints, Denies back pain, Denies arthralgias, Denies joint swelling, Denies neck pain, Denies numbness and Denies tingling Skin/Breast: Reports system reviewed and no additional complaints, except as docu and Denies rash Reports system reviewed and no additional complaints, except as documented, Denies Abnormal speech present, Denies dizziness, Denies headache(s), Denies numbness, Denies tingling and Denies weakness Mental Status Exam Mental Status Exam Narrative: Appearance: casually groomed, fair hygiene, long hair, in NAD Behavior: calm, cooperative Psychomotor: no agitation or retardation noted Speech: clear, normal rate/rhythm/volume, spontaneous TP: linear TC: no signs of psychosis, insisting on stimulants for adhd Mood: depressed Affect:brighter, non labile AH/VH:+AH Delusions:none Insight/judgment:poor x 2. Memory/cog:alert, oriented x 3. grossly intact to conversational testing. Diagnostics Vital Signs (24Hr): Vital Signs - 24 hr 10/19/20 18:00 10/20/20 06:25 Temperature 98.8 F 98.3 F Pulse Rate 99 58 Respiratory Rate 14 Blood Pressure 110/56 L 113/62 Pulse Oximetry 96 Body Mass Index 18.6 Labs Results: 10/13/20 21:58 10/13/20 21:58 Medications Medications Current Medications Generic Name Dose Route Start Last Admin Trade Name Freq PRN Reason Stop Dose Admin Acetaminophen 650 mg 10/16/20 19:20 Acetaminophen 325 Mg Tablet PO Q6H PRN Headache/Pain Mild Scale (1-3) Al Hydroxide/Mg Hydroxide 30 ml 10/16/20 19:20 Magnesium Hydrox/Alum Hydrox 30 Ml Oral.Susp PO Q6H PRN Heartburn/Nausea Divalproex Sodium 500 mg 10/17/20 21:00 10/20/20 08:43 Divalproex Sodium 500 Mg Tablet.Dr PO 500 mg BID [facility] Administration Hydroxyzine HCl 50 mg 10/18/20 14:59 10/18/20 21:59 Hydroxyzine Hcl 50 Mg Tablet PO 50 mg Q6H PRN Administration moderate anxiety Lorazepam 1 mg 10/20/20 10:32 10/20/20 10:41 Lorazepam 0.5 Mg Tablet PO 1 mg BID [facility] Administration Magnesium Hydroxide 30 ml 10/16/20 19:20 Milk Of Magnesia 30 Ml Oral.Susp PO DAILY PRN Constipation Mirtazapine 7.5 mg 10/17/20 21:00 10/19/20 21:55 Mirtazapine 7.5 Mg Tablet PO 7.5 mg BEDTIME [facility] Administration Nicotine 21 mg 10/17/20 09:00 10/20/20 08:44 Nicotine 21 Mg Patch.Td24 TRANSDERMA 21 mg DAILY [facility] Administration Nicotine Polacrilex 2 mg 10/16/20 19:20 Nicotine Polacrilex 2 Mg Gum BUCCAL Q2H PRN Nicotine Cravings Quetiapine Fumarate 200 mg 10/14/20 21:00 10/19/20 21:55 Quetiapine Fumarate 100 Mg Tablet PO 200 mg BEDTIME [facility] Administration Quetiapine Fumarate 50 mg 10/18/20 14:58 10/19/20 09:15 Quetiapine Fumarate 50 Mg Tablet PO 50 mg Q5H PRN Administration anxiety/agitation Quetiapine Fumarate 150 mg 10/19/20 14:00 10/20/20 08:44 Quetiapine Fumarate 50 Mg Tablet PO 150 mg BID@0900,1400 [facility] Administration Allergies Allergies Allergy/AdvReac Type Severity Reaction Status Date / Time No Known Allergies Allergy Verified 08/06/20 21:38 [No Known Allergies*] Assessment & Plan Assessment & Plan (1) Borderline personality disorder: Status: Acute Code(s): F60.3 - Borderline personality disorder (2) Cannabis use disorder, moderate, dependence: Status: Acute Code(s): F12.20 - Cannabis dependence, uncomplicated Assessment and Plan: 1. cross taper lamictal to depakote 2. d/c wellbutrin 3. contiune seroquel 4. Aftercare planning 5. Obtain collateral information (3) Lacerations of multiple sites of left arm: Qualifiers: Encounter type: initial encounter Qualified Code(s): S41.112A - Laceration without foreign body of left upper arm, initial encounter Status: Acute Code(s): S41.112A - Laceration without foreign body of left upper arm, initial encounter (4) Bipolar 1 disorder, mixed, moderate: Status: Acute Code(s): F31.62 - Bipolar disorder, current episode mixed, moderate Greater than 50% of the session was spent on counseling and/or coordination of care Reason for contiued inpatient stay Substantial Risk for: rapid decompensation
[2020-10-20 18:00] VITALS: BP 139/74; PULSE 79; TEMP 37.7
[2020-10-20] MEDS: QUEtiapine Fumarate 100 MG TABLET 200 MG PO (21:50)
[2020-10-20] MEDS: Mirtazapine 7.5 MG TABLET PO (21:50)
[2020-10-21 06:40] VITALS: BP 107/53; PULSE 68; RESP 16; TEMP 36.3; O2SAT 96
--- NOTE | 2020-10-21 08:11 | HO.PSYCHPN ---
Subjective Subjective Date of Service: 10/21/20 Reason For Visit: Drug use Interim History: 10/21/2020: Patient denies cravings but feels like she wants to sell drugs as a gives a power over people. Patient back on lorazepam. Patient hopes to attend 6 month residential program. 10/20/2020: Patient reports anxiety. Much concern about lorazepam . we discussed continued lorazepam in the context of substance use. We will reinstate lorazepam as it had dropped off. Patient motivated to go to long-term rehab program. 10/19/2020: Pt thought process is linear and coherent. He denies SI/HI. He denies VH/AH. He reports seroquel has been helpful for him in the past and would like to continue this medications. Iniitally we had talked about switching to risperidone if he continues to experience AH. He reports sleep is fair, waking up frequently. He has been visible in the unit, attends groups. Review of Systems Review of Systems Yes all other systems are reviewed and are negative Constitutional: Reports no additional constitutional complaints, Denies body ache(s), Denies chills, Denies fever(s), Denies headache(s) and Denies weakness Eyes: Reports no additional eye complaints and Denies change in vision Reports system reviewed and no additional complaints, except as documented, Denies dizziness, Denies headache(s), Denies nasal congestion, Denies nasal discharge and Denies neck pain Cardiovascular: Reports no additional cardiovascular complaints, Denies chest pain, Denies leg edema and Denies dyspnea Respiratory: Reports no additional respiratory complaints, Denies cough and Denies dyspnea Gastrointestinal: Reports no additional gastrointestinal complaints, Denies abdominal pain, Denies diarrhea, Denies nausea and Denies vomiting Genitourinary: Denies urinary incontinence Musculoskeletal: Reports no additional musculoskeletal complaints, Denies back pain, Denies arthralgias, Denies joint swelling, Denies neck pain, Denies numbness and Denies tingling Skin/Breast: Reports system reviewed and no additional complaints, except as docu and Denies rash Reports system reviewed and no additional complaints, except as documented, Denies Abnormal speech present, Denies dizziness, Denies headache(s), Denies numbness, Denies tingling and Denies weakness Mental Status Exam Mental Status Exam Narrative: Appearance: casually groomed, fair hygiene, long hair, in NAD Behavior: calm, cooperative Psychomotor: no agitation or retardation noted Speech: clear, normal rate/rhythm/volume, spontaneous TP: linear TC: no signs of psychosis, insisting on stimulants for adhd Mood: depressed Affect:brighter, non labile AH/VH:+AH Delusions:none Insight/judgment:poor x 2. Memory/cog:alert, oriented x 3. grossly intact to conversational testing. Diagnostics Vital Signs (24Hr): Vital Signs - 24 hr 10/20/20 18:00 10/21/20 06:40 Temperature 99.8 F 97.4 F Pulse Rate 79 68 Respiratory Rate 16 Blood Pressure 139/74 107/53 L Pulse Oximetry 96 Body Mass Index 18.6 Labs Results: 10/13/20 21:58 10/13/20 21:58 Medications Medications Current Medications Generic Name Dose Route Start Last Admin Trade Name Freq PRN Reason Stop Dose Admin Acetaminophen 650 mg 10/16/20 19:20 Acetaminophen 325 Mg Tablet PO Q6H PRN Headache/Pain Mild Scale (1-3) Al Hydroxide/Mg Hydroxide 30 ml 10/16/20 19:20 Magnesium Hydrox/Alum Hydrox 30 Ml Oral.Susp PO Q6H PRN Heartburn/Nausea Divalproex Sodium 500 mg 10/17/20 21:00 10/20/20 21:50 Divalproex Sodium 500 Mg Tablet.Dr PO 500 mg BID CORRY Administration Hydroxyzine HCl 50 mg 10/18/20 14:59 10/18/20 21:59 Hydroxyzine Hcl 50 Mg Tablet PO 50 mg Q6H PRN Administration moderate anxiety Lorazepam 1 mg 10/20/20 10:32 10/20/20 21:49 Lorazepam 0.5 Mg Tablet PO 1 mg BID CORRY Administration Magnesium Hydroxide 30 ml 10/16/20 19:20 Milk Of Magnesia 30 Ml Oral.Susp PO DAILY PRN Constipation Mirtazapine 7.5 mg 10/17/20 21:00 10/20/20 21:50 Mirtazapine 7.5 Mg Tablet PO 7.5 mg BEDTIME CORRY Administration Nicotine 21 mg 10/17/20 09:00 10/20/20 08:44 Nicotine 21 Mg Patch.Td24 TRANSDERMA 21 mg DAILY CORRY Administration Nicotine Polacrilex 2 mg 10/16/20 19:20 Nicotine Polacrilex 2 Mg Gum BUCCAL Q2H PRN Nicotine Cravings Quetiapine Fumarate 200 mg 10/14/20 21:00 10/20/20 21:50 Quetiapine Fumarate 100 Mg Tablet PO 200 mg BEDTIME CORRY Administration Quetiapine Fumarate 50 mg 10/18/20 14:58 10/19/20 09:15 Quetiapine Fumarate 50 Mg Tablet PO 50 mg Q5H PRN Administration anxiety/agitation Quetiapine Fumarate 150 mg 10/19/20 14:00 10/20/20 14:02 Quetiapine Fumarate 50 Mg Tablet PO 150 mg BID@0900,1400 CORRY Administration Allergies Allergies Allergy/AdvReac Type Severity Reaction Status Date / Time No Known Allergies Allergy Verified 08/06/20 21:38 [No Known Allergies*] Assessment & Plan Assessment & Plan (1) Borderline personality disorder: Status: Acute Code(s): F60.3 - Borderline personality disorder (2) Cannabis use disorder, moderate, dependence: Status: Acute Code(s): F12.20 - Cannabis dependence, uncomplicated Assessment and Plan: 1. cross taper lamictal to depakote 2. d/c wellbutrin 3. contiune seroquel 4. Aftercare planning 5. Obtain collateral information (3) Lacerations of multiple sites of left arm: Qualifiers: Encounter type: initial encounter Qualified Code(s): S41.112A - Laceration without foreign body of left upper arm, initial encounter Status: Acute Code(s): S41.112A - Laceration without foreign body of left upper arm, initial encounter (4) Bipolar 1 disorder, mixed, moderate: Status: Acute Code(s): F31.62 - Bipolar disorder, current episode mixed, moderate Greater than 50% of the session was spent on counseling and/or coordination of care Reason for contiued inpatient stay Substantial Risk for: harm to self
[2020-10-21] MEDS: QUEtiapine Fumarate 50 MG TABLET 150 MG PO ×2 (08:47→13:57)
[2020-10-21] MEDS: LORazepam 0.5 MG TABLET 1 MG PO ×2 (08:47→22:26)
[2020-10-21] MEDS: Divalproex Sodium 500 MG TABLET.DR PO ×2 (08:47→22:25)
[2020-10-21] MEDS: Nicotine 21 MG PATCH.TD24 TRANSDERMA (08:47)
[2020-10-21 18:00] VITALS: BP 115/62; BP 139/82; PULSE 116; PULSE 75; TEMP 36.6; TEMP 37.1
[2020-10-21] MEDS: QUEtiapine Fumarate 100 MG TABLET 200 MG PO (22:26)
[2020-10-21] MEDS: Mirtazapine 7.5 MG TABLET PO (22:26)
[2020-10-22 06:20] VITALS: BP 85/42; PULSE 64; RESP 14; TEMP 36.2; O2SAT 99
[2020-10-22] MEDS: LORazepam 0.5 MG TABLET 1 MG PO ×2 (08:30→22:34)
[2020-10-22] MEDS: QUEtiapine Fumarate 50 MG TABLET 150 MG PO ×2 (08:30→14:41)
[2020-10-22] MEDS: Divalproex Sodium 500 MG TABLET.DR PO ×2 (08:31→22:34)
[2020-10-22 16:33] VITALS: BP 126/64; PULSE 74; TEMP 36.7
--- NOTE | 2020-10-22 18:52 | HO.PSYCHPN ---
Subjective Subjective Date of Service: 10/22/20 Reason For Visit: Drug use Interim History: Pt well groomed, bright, non labile affect. She reports she is ready for discharge as she hopes to continue substance use treatment. She reports some difficulty staying asleep, but reports sleep has improved since admission. She denies VH/AH. She denies SI/HI. She has been visible in the unit, no behavioral concerns. Discussed with pt lorazepam will not be prescribed post discharge given ongoing substance use, hx of benzo misuse. Review of Systems Review of Systems Yes all other systems are reviewed and are negative Constitutional: Reports no additional constitutional complaints, Denies body ache(s), Denies chills, Denies fever(s), Denies headache(s) and Denies weakness Eyes: Reports no additional eye complaints and Denies change in vision Reports system reviewed and no additional complaints, except as documented, Denies dizziness, Denies headache(s), Denies nasal congestion, Denies nasal discharge and Denies neck pain Cardiovascular: Reports no additional cardiovascular complaints, Denies chest pain, Denies leg edema and Denies dyspnea Respiratory: Reports no additional respiratory complaints, Denies cough and Denies dyspnea Gastrointestinal: Reports no additional gastrointestinal complaints, Denies abdominal pain, Denies diarrhea, Denies nausea and Denies vomiting Genitourinary: Denies urinary incontinence Musculoskeletal: Reports no additional musculoskeletal complaints, Denies back pain, Denies arthralgias, Denies joint swelling, Denies neck pain, Denies numbness and Denies tingling Skin/Breast: Reports system reviewed and no additional complaints, except as docu and Denies rash Reports system reviewed and no additional complaints, except as documented, Denies Abnormal speech present, Denies dizziness, Denies headache(s), Denies numbness, Denies tingling and Denies weakness Mental Status Exam Mental Status Exam Narrative: Appearance: casually groomed, fair hygiene, long hair, in NAD Behavior: calm, cooperative Psychomotor: no agitation or retardation noted Speech: clear, normal rate/rhythm/volume, spontaneous TP: linear TC: no signs of psychosis, insisting on stimulants for adhd Mood: depressed Affect:brighter, non labile AH/VH:+AH Delusions:none Insight/judgment:poor x 2. Memory/cog:alert, oriented x 3. grossly intact to conversational testing. Diagnostics Vital Signs (24Hr): Vital Signs - 24 hr 10/22/20 06:20 Temperature 97.1 F Pulse Rate 64 Respiratory Rate 14 Blood Pressure 85/42 L Pulse Oximetry 99 Body Mass Index 18.6 Labs Results: 10/13/20 21:58 10/13/20 21:58 Medications Medications Current Medications Generic Name Dose Route Start Last Admin Trade Name Freq PRN Reason Stop Dose Admin Acetaminophen 650 mg 10/16/20 19:20 Acetaminophen 325 Mg Tablet PO Q6H PRN Headache/Pain Mild Scale (1-3) Al Hydroxide/Mg Hydroxide 30 ml 10/16/20 19:20 Magnesium Hydrox/Alum Hydrox 30 Ml Oral.Susp PO Q6H PRN Heartburn/Nausea Divalproex Sodium 500 mg 10/17/20 21:00 10/22/20 08:31 Divalproex Sodium 500 Mg Tablet.Dr PO 500 mg BID CORRY Administration Hydroxyzine HCl 50 mg 10/18/20 14:59 10/18/20 21:59 Hydroxyzine Hcl 50 Mg Tablet PO 50 mg Q6H PRN Administration moderate anxiety Lorazepam 1 mg 10/20/20 10:32 10/22/20 08:30 Lorazepam 0.5 Mg Tablet PO 1 mg BID CORRY Administration Magnesium Hydroxide 30 ml 10/16/20 19:20 Milk Of Magnesia 30 Ml Oral.Susp PO DAILY PRN Constipation Mirtazapine 7.5 mg 10/17/20 21:00 10/21/20 22:26 Mirtazapine 7.5 Mg Tablet PO 7.5 mg BEDTIME CORRY Administration Nicotine 21 mg 10/17/20 09:00 10/22/20 08:33 Nicotine 21 Mg Patch.Td24 TRANSDERMA Not Given DAILY CORRY Nicotine Polacrilex 2 mg 10/16/20 19:20 Nicotine Polacrilex 2 Mg Gum BUCCAL Q2H PRN Nicotine Cravings Quetiapine Fumarate 200 mg 10/14/20 21:00 10/21/20 22:26 Quetiapine Fumarate 100 Mg Tablet PO 200 mg BEDTIME CORRY Administration Quetiapine Fumarate 50 mg 10/18/20 14:58 10/19/20 09:15 Quetiapine Fumarate 50 Mg Tablet PO 50 mg Q5H PRN Administration anxiety/agitation Quetiapine Fumarate 150 mg 10/19/20 14:00 10/22/20 14:41 Quetiapine Fumarate 50 Mg Tablet PO 150 mg BID@0900,1400 CORRY Administration Allergies Allergies Allergy/AdvReac Type Severity Reaction Status Date / Time No Known Allergies Allergy Verified 08/06/20 21:38 [No Known Allergies*] Assessment & Plan Assessment & Plan (1) Borderline personality disorder: Status: Acute Code(s): F60.3 - Borderline personality disorder Assessment and Plan: 1. continue current medications. (2) Cannabis use disorder, moderate, dependence: Status: Acute Code(s): F12.20 - Cannabis dependence, uncomplicated Assessment and Plan: 1. cross taper lamictal to depakote 2. d/c wellbutrin 3. contiune seroquel 4. Aftercare planning 5. Obtain collateral information (3) Lacerations of multiple sites of left arm: Qualifiers: Encounter type: initial encounter Qualified Code(s): S41.112A - Laceration without foreign body of left upper arm, initial encounter Status: Acute Code(s): S41.112A - Laceration without foreign body of left upper arm, initial encounter (4) Bipolar 1 disorder, mixed, moderate: Status: Acute Code(s): F31.62 - Bipolar disorder, current episode mixed, moderate Greater than 50% of the session was spent on counseling and/or coordination of care Reason for contiued inpatient stay Substantial Risk for: stable for discharge
[2020-10-22] MEDS: Mirtazapine 7.5 MG TABLET PO (22:34)
[2020-10-22] MEDS: QUEtiapine Fumarate 100 MG TABLET 200 MG PO (22:34)
[2020-10-23 06:35] VITALS: BP 111/63; PULSE 68; RESP 16; TEMP 36.9; O2SAT 100
[2020-10-23 08:46] LABS: Valproate 76.8 mcg/mL (50.0-100.0)
[2020-10-23] MEDS: QUEtiapine Fumarate 50 MG TABLET 150 MG PO (08:46)
[2020-10-23] MEDS: Divalproex Sodium 500 MG TABLET.DR PO (08:46)
[2020-10-23] MEDS: LORazepam 0.5 MG TABLET 1 MG PO (08:47)
--- NOTE | 2020-10-23 10:18 | PM.PSYDC ---
DS: Providers Provider Date of Service: 11/07/20 Date of admission: 10/16/20 19:20 Primary care physician: WANDA Ambriz DS: Diagnosis Discharge Diagnosis (1) Borderline personality disorder: Status: Acute (2) Cannabis use disorder, moderate, dependence: Status: Acute (3) Lacerations of multiple sites of left arm: Status: Acute (4) Bipolar 1 disorder, mixed, moderate: Status: Acute DS: Medications Discharge Medications Home Medications: Previous Rx's Medication Instructions Recorded divalproex 500 mg PO BID 30 Days #60 tab 10/23/20 mirtazapine 7.5 mg PO BEDTIME 30 Days #30 tab 10/23/20 nicotine 21 mg TRANSDERMAL DAILY 30 Days 10/23/20 #30 ea quetiapine 150 mg PO BID@0900,1400 30 Days 10/23/20 #90 tab quetiapine 200 mg PO BEDTIME 30 Days #60 tab 10/23/20 Discharge Plan Discharge Patient Disposition: Home, Self-Care Referrals: Susan Khan, intake, [facility] [Other] - 10/31/20 10:[address] Anders Khan, psychiatry, [facility] [Other] - 11/28/20 4:00 pm Tammy Cintron PA [Primary Care Provider] - 10/24/20 9:00 am (in office) Discharge Medications: New divalproex 500 mg Tablet,Delayed Release (Dr/Ec) 500 mg PO BID 30 Days Qty: 60 RF: 0 quetiapine 100 mg Tablet 200 mg PO BEDTIME 30 Days Qty: 60 RF: 0 nicotine 21 mg/24 hr Patch 24 Hour 21 mg transdermal DAILY 30 Days Qty: 30 RF: 0 mirtazapine 7.5 mg Tablet 7.5 mg PO BEDTIME 30 Days Qty: 30 RF: 0 quetiapine 50 mg Tablet 150 mg PO BID@0900,1400 30 Days Qty: 90 RF: 0 Discontinued lorazepam 0.5 mg Tablet 0.5 mg PO BID RF: 0 lamotrigine [Lamictal] 100 mg tablet 100 mg PO DAILY Qty: 14 RF: 1 lorazepam 0.5 mg Tablet 0.5 mg PO BID Qty: 14 RF: 4 quetiapine [Seroquel] 100 mg tablet 150 mg PO BID RF: 0 quetiapine [Seroquel] 100 mg tablet 200 mg PO BEDTIME RF: 0 bupropion HCl [Wellbutrin XL] 300 mg tablet extended release 24 hr 450 mg PO QAM RF: 0 Discharge Orders: Discharge Order (Routine); Ordered 10/23/20 Ordered By: Sharifa Nolan Diet: regular diet Activity on Discharge: As tolerated Stand Alone Forms: Patient Portal Discharge page, Community Support Activity Restrictions/Additional Instructions: Sutures out in 7-10 days Care Plan Goals: 1. Follow up with referrals Health Concerns: 1. Follow up w/ PCP Plan of Treatment: 1. Take medications as prescribed. Patient Instructions: Laceration (ED), Bipolar Disorder (ED) Discharge Date/Time: 10/23/20 13:55 Mental Status Exam Mental Status Exam Narrative: Appearance: casually groomed, fair hygiene, long hair, in NAD Behavior: calm, cooperative Psychomotor: no agitation or retardation noted Speech: clear, normal rate/rhythm/volume, spontaneous TP: linear TC: no signs of psychosis, future oriented Mood: better Affect:brighter, non labile AH/VH:+AH Delusions:none Insight/judgment:poor x 2. Memory/cog:alert, oriented x 3. grossly intact to conversational testing. Data Data Completed and Pending Completed studies during hospitalization [Text1]: 10/23/20 08:06 Valproic Acid 76.8 DS: Summary Hospital Course Hospital Course: TISHA Rivas is a 19 year-old transgender male to female with hx of cocaine/crystal meth dependence and mood disorder (goes by Sheldon but prefers she/her pronouns). She was brought [place] [facility] after she cut her left wrist, multiple superficial laceration but one requiring 6 sutures. According to [facility] crisis report, Sheldon reported having an argument with her father which she interpreted as my family wants me to . She reports engaging in self injurious behaviors for a long time but this time she reports it was out of frustration more than a suicide attempt. She reports using cocaine about 3 weeks ago. She also reports using crystal meth but last use according to patient was more than one month ago. She reports AH. She reports denies suicidal ideation. Per crisis report, father concern that pt appeared more confused, erratic behaviors which he thought were related to his ongoing substance use. Pt apparently recently had two grand mal seizures related to her substance use (cocaine). Past Psychiatric History: In Pt: 4 admits, including 2019 ; [facility] 07/2020 Out Pt: TATIANNA, Dwaine Caballero for psychotherapy Hx PHP/IOP Trials: wellbutrin, seroquel, trileptal, lamictal Hx of SIBS-cutting HI in childhood HOSPITAL COURSE On the unit, Ms. Rivas was placed on 15 minutes checks for safety. Rob presented as calm, cooperative. She reported depressed mood for past month. She also reported AH, which worsened when he uses substance. She reported difficulty falling asleep. She reports enjoying cutting herself and adds that it is not with intent to end her life. She reports sometimes she cuts herself to relief emotional pain, but also cuts herself out of boredom. Pt showed this creative services writer in between finger attempt to stab herself and enjoying seeing it while doing it. She reports that her main concerns are attention problems and taking a stimulant and sexual dysfunction which he reports wellbutrin has been helpful. We discussed that given two recent grand mal seizures, he should not be on wellbutrin as it lower seizure threshold. She appears to minimize effects of substance use on mood and ability to function. She is currently on mandated substance use treatment program in [place]. We discussed switching lamictal to another mood stabilizer for impulsivity and aggression, which she agreed. Ms. Rivas was started on depakote, which she tolerated and was titrated to 500mg po BID. She also reported seroquel being beneficial for anxiety and mood. She was started on remeron 15mg po qhs for sleep. Her affect gradually brighten, without signs of lability. She denied VH/AH. She did not appear to be responding to internal stimuli. She was increasingly more visible in the unit and attended assigned groups. She reported improved sleep/appetite. She denied SI/HI throughout this admission. There were no incidences of disruptive behaviors nor use of restraints. Collateral information gathered from her father who reported at time to discharge that pt appear back to baseline and denied safety concerns. We discussed with family possibility of considering section 35 but father declined. Pt agreed to continue OP psychiatric and substance use treatment. Time spent discussing smoking cessation with patient: 3 to 10 minutes Status at Discharge Cognitive/behavioral status at discharge: Affect is brighter, non labile. No signs of psychosis nor confusing. Pt denies SI/HI. No signs of aggression towards self or others. Functional status at discharge: independent ambulation Overall status at discharge: patient is progressing back to baseline Time Spent with Patient Time attestation: Total time spent providing and/or coordinating discharge services: Time spent: Greater than 30 minutes
--- NOTE | 2020-10-23 11:19 | PC.NURSE ---
pt reports no urge to harm himself or any one else. pt is currently denying any drug cravings. pt is not experiencing auditory or visual hallucinations. pt reports readiness for discharge. pt has a plan for a 6 month treatment program. pt has a strong support system. pt is independently taking care of adls. pt reports no depression. pt has been in behavioral control and interacting with peers throughout the stay. pt reports 4/10 anxiety when using medications. pts paperwork has been faxed to PCP per protocol. pts appointments have been scheduled.
== END 2020-10-23 13:55 | disposition home or self-care (01) | DRG 753 ==
LOC: HO.ED 10-16 19:09 → HO.PM5 10-16 19:26
PROVIDERS: Nurse Practitioner Family; Physician Assistant; Admitting Provider Psychiatry & Neurology Psychiatry; Emergency Provider Internal Medicine; PCP Physician Assistant; Visit Provider Social Worker
DX: F31.62 Bipolar disorder, current episode mixed, moderate (principal); F12.20 Cannabis dependence, uncomplicated; F60.3 Borderline personality disorder; F64.0 Transsexualism; S51.812A Laceration without foreign body of left forearm, initial encounter; X78.8XXA Intentional self-harm by other sharp object, initial encounter; Y93.9 Activity, unspecified; Y92.002 Bathroom of unspecified non-institutional (private) residence as the place of occurrence of the external cause; Y99.9 Unspecified external cause status; Z20.822 Contact with and (suspected) exposure to COVID-19; Z23 Encounter for immunization; Z79.899 Other long term (current) drug therapy
CPT/HCPCS: 36415; 80048; 80076; 80143; 80164; 80179; 80307; 80320; 85025; 87635; 90686; 90715; 93005; 99285; Q0163

== ENCOUNTER 2021-01-20 00:36 | Emergency (ER) | payer MEDICAID, SELFPAY ==
[2021-01-20 01:17] VITALS: BP 120/73; PULSE 60; RESP 18; TEMP 36.3; O2SAT 97; BMI 22.0
--- NOTE | 2021-01-20 02:48 | ED_ITS ---
HPI - Skin/Abscess/Foreign Bdy General Chief complaint: Skin/Abscess/Foreign Body Stated complaint: Med Reaction Time Seen by Provider: 01/20/21 02:41 History of Present Illness HPI narrative: Patient is a 20-year-old male with a history of bipolar 1. Presented today with having redness over the face over the arm. With clearish discharge from the lesions in the forehead. Patient dose of Remeron was recently increased. No other change in environment. No fever no chills. No new soaps suntan lotion. No changes in environment. No pets. Patient from home. Extremely pleuritic. Worse over both arms and over face and neck. Related Data Previous Rx's Medication Instructions Recorded divalproex 500 mg PO BID 30 Days #60 tab 10/23/20 mirtazapine 7.5 mg PO BEDTIME 30 Days #30 tab 10/23/20 nicotine 21 mg TRANSDERMAL DAILY 30 Days 10/23/20 #30 ea quetiapine 150 mg PO BID@0900,1400 30 Days 10/23/20 #90 tab quetiapine 200 mg PO BEDTIME 30 Days #60 tab 10/23/20 diphenhydramine HCl [Benadryl] 25 mg PO Q8H 5 Days #15 cap 01/20/21 epinephrine 0.3 mg IM ONCE PRN #1 ea 01/20/21 famotidine [Pepcid] 20 mg PO BID 5 Days #10 tab 01/20/21 prednisone 40 mg PO DAILY #10 tab 01/20/21 Allergies Allergy/AdvReac Type Severity Reaction Status Date / Time No Known Allergies Allergy Verified 08/06/20 21:38 [No Known Allergies*] Review of Systems Review of Systems: Constitutional: No Weight loss, No Fever, No Chills, No Night Sweats, No Fatigue, No Malaise ENT/Mouth: No Hearing loss, No Ear Pain, No Nasal Congestion, No Sinus Pain, No Hoarseness, No sore throat, No Rhinorrhea, No Swallowing Difficulty Eyes: No Eye Pain, No Swelling, No Redness, No Foreign Body, No Discharge, No Vision Changes Cardiovascular: No Chest Pain, No SOB, No Dyspnea on Exertion, No Orthopnea, No Edema, No Palpitations Respiratory: No Cough, No Sputum, No Wheezing, No Smoke Exposure, No Dyspnea Gastrointestinal: No Nausea, No Vomiting, No Diarrhea, No Constipation, No abdominal Pain, No Hematochezia, No Melena Genitourinary: no irregular bleeding, No Dysuria, No Urinary Frequency, No H ematuria, No Urinary Incontinence, No Urgency, No Flank Pain, No Urinary Flow Changes, No Hesitancy Musculoskeletal: No joint pain, No Myalgias, No Joint Swelling Skin: Positive diffuse erythematous rash over the face over bilateral hand. The red rash over the face has a clearish discharge. The rash of blanching. There is no mucosal membrane in a involvement. There is no easy sloughing of the tissues. Neuro: No Weakness, No Numbness, No Paresthesias, No Loss of Consciousness, No Dizziness, No Headache Psych: No Anxiety/Panic, No Depression, No SI/HI/AH/VH, No Social Issues, Heme/Lymph: No Bruising, No Bleeding,No Lymphadenopathy Endocrine: No Polyuria, No Polydipsia, No Temperature Intolerance PMFSH Past Medical History Medical History Bipolar 1 disorder Borderline personality disorder Cannabis use disorder, moderate, dependence Irritable bowel syndrome Opioid use disorder, moderate, dependence Social History Social History Household Members: Family Housing: Apartment Do you presently have visiting nurse or other home services: No Alcohol intake: current Second Hand Smoke Exposure: No Substance Use Type: Marijuana and Painkillers Advance Directives: No Advance Directives Information Provided: No service: No Sexual orientation: Questioning Physical Exam Vital Signs: Vital Signs: Last Vital Signs Temp 97.3 F 01/20/21 01:17 Pulse 60 01/20/21 01:17 Resp 18 01/20/21 01:17 BP 120/73 01/20/21 01:17 Pulse Ox 97 01/20/21 01:17 Body Mass Index 22.0 Discharge Plan Discharge Clinical Impression: Allergic reaction Patient Disposition: Home, Self-Care Instructions: Allergies (ED) Additional Instructions: Please stop the Remeron. Please take the steroids. Close follow-up advised. Prescriptions: New prednisone 20 mg tablet 40 mg PO DAILY Qty: 10 RF: 0 famotidine [Pepcid] 20 mg tablet 20 mg PO BID 5 Days Qty: 10 RF: 0 diphenhydramine HCl [Benadryl] 25 mg capsule 25 mg PO Q8H 5 Days Qty: 15 RF: 0 epinephrine 0.3 mg/0.3 mL auto-injector 0.3 mg IM ONCE PRN (Reason: anaphylaxis) Qty: 1 RF: 0 No Action divalproex 500 mg Tablet,Delayed Release (Dr/Ec) 500 mg PO BID 30 Days Qty: 60 RF: 0 quetiapine 100 mg Tablet 200 mg PO BEDTIME 30 Days Qty: 60 RF: 0 nicotine 21 mg/24 hr Patch 24 Hour 21 mg transdermal DAILY 30 Days Qty: 30 RF: 0 mirtazapine 7.5 mg Tablet 7.5 mg PO BEDTIME 30 Days Qty: 30 RF: 0 quetiapine 50 mg Tablet 150 mg PO BID@0900,1400 30 Days Qty: 90 RF: 0 Referrals: Physician,Unknown [Primary Care Provider] - 2 days
[2021-01-20] MEDS: predniSONE 20 MG TABLET 40 MG PO (03:07)
[2021-01-20] MEDS: Famotidine 20 MG TABLET PO (03:07)
[2021-01-20] MEDS: diphenhydrAMINE HCL 25 MG TABLET PO (03:07)
== END 2021-01-20 04:22 | disposition home or self-care (01) ==
PROVIDERS: Emergency Provider Emergency Medicine Emergency Medical Services
DX: L27.1 Localized skin eruption due to drugs and medicaments taken internally (principal); T43.025A Adverse effect of tetracyclic antidepressants, initial encounter; Y92.039 Unspecified place in apartment as the place of occurrence of the external cause; F60.3 Borderline personality disorder; F11.20 Opioid dependence, uncomplicated; F12.20 Cannabis dependence, uncomplicated
CPT/HCPCS: 99283; Q0163